=== PATIENT | male | born 1960 | race Caucasian/White ===

== ENCOUNTER 2023-01-01 10:32 | Day surgery (SDC) | payer OTHER ==
[2022-12-31 11:55] VITALS: BMI 26.3
[~2023-01-01 10:32] MED LIST: LACTATED RINGERS 1,000 ML IV SCH
[2023-01-01 11:00] VITALS: TEMP 98.2
[2023-01-01] MEDS ORDERED: PROPOFOL 10 MG/ML 20 ML VIAL IV ONE (11:52)
--- NOTE | 2023-01-01 12:10 | P.PCN ---
Date of Procedure: 01/01/23 Procedure(s) Performed: BRIEF HISTORY: Patient is a 62-year-old pleasant white female scheduled for colonoscopy as a part of screening for colon cancer/polypscologuard. PROCEDURE PERFORMED: Colonoscopy. PREOPERATIVE DIAGNOSIS:Colon cancer/positive cologuard. IV sedation per Anesthesia. PROCEDURE: After informed consent was obtained, the patient, was brought into the endoscopy unit. IV sedation was administered by Anesthesia under continuous monitoring. Digital rectal examination was normal. Initially the Olympus CF-160 flexible video colonoscope was then inserted in the rectum, gradually advanced into the cecum without any difficulty. Careful examination was performed as the scope was gradually being withdrawn. Ileocecal valve and the appendiceal orifice were visualized and appeared normal. Prep was excellent. Mucosa of the cecum, ascending colon, transverse colon, descending colon, sigmoid colon, and rectum appeared normal. scattered sigmoid diverticulosis. Retroflexion was performed in the rectum and no lesions were seen. The patient tolerated the procedure well. IMPRESSION: Normal-appearing colon from rectum to cecumwith no evidence of colorectal neoplasia . Scattered sigmoid diverticula . RECOMMENDATIONS: Findings of this examination were discussed with the patientas well as his family. He was advised to have a repeat screening colonoscopy in 10 years.].
[2023-01-01 12:19] VITALS: RESP 16
[2023-01-01 12:25] VITALS: BP 133/87; PULSE 63
== END 2023-01-01 12:52 | disposition home or self-care (01) ==
LOC: ORWHC2ENDO 10:32
PROVIDERS: ATTEND Internal Medicine Gastroenterology
DX: R19.5 Other fecal abnormalities (principal); K57.30 Diverticulosis of large intestine without perforation or abscess without bleeding
CPT/HCPCS: 45378; J2704